=== PATIENT | female | born 2005 | race Caucasian/White ===

== ENCOUNTER 2024-01-13 08:00 | Inpatient (IN) | payer OTHER ==
[2024-01-13] MEDS: ELECTROLYTE-148 SOLN 500 ML IV ONE (09:30)
[2024-01-13 09:47] VITALS: BMI 29.2
[2024-01-13] MEDS ORDERED: ACETAMINOPHEN 325 MG TABLET (FP) PO PRN (10:09)
[2024-01-13] MEDS: ELECTROLYTE-148 SOLN 1,000 ML IV SCH (10:30)
[2024-01-13] MEDS ORDERED: FENTANYL CITRATE/PF 50 MCG/ML VIAL ONE (10:36)
[2024-01-13] MEDS ORDERED: morphine SULFATE/PF 1 MG/2 ML (2cc Syringe - QUVA) ONE (10:36)
[2024-01-13] MEDS: CITRIC ACID/SODIUM CITRATE 30 ML UNIT-DOSE CUP PO ONE (10:45)
[2024-01-13] MEDS ORDERED: ceFAZolin SODIUM 1 GM VIAL ONE (11:19)
[2024-01-13] MEDS ORDERED: ONDANSETRON 4 MG/2 ML VIAL ONE (11:20)
[2024-01-13] MEDS ORDERED: OXYTOCIN 20 UNITS in 0.9% NS 20 UNIT/1,000 ML INFUS.BAG IV ONE (12:11)
[2024-01-13] MEDS: OXYTOCIN 20 UNITS in 0.9% NS 20 UNIT/1,000 ML INFUS.BAG IV SCH (12:15)
[2024-01-13] MEDS: ONDANSETRON 4 MG/2 ML VIAL IVPUSH PRN (13:15)
[2024-01-13] MEDS: IBUPROFEN 800 MG/8 ML IJ IVPB PRN (16:48)
[2024-01-13] MEDS ORDERED: oxyCODONE HCL 5 MG TABLET PO PRN (22:09)
[2024-01-14 07:48] LABS: BASO % 0.3 % (0-2.0); EOS % 0.2 % (0-4.5); HEMATOCRIT 34.2 % (32.4-45.2); HEMOGLOBIN 11.1 GM/dL (10.7-15.3); LYMPH % 12.3 % (8-40); MCH 27.5 pg (25.7-33.7); MCHC 32.4 g/dl (32.0-36.0); MEAN CELL VOLUME 84.9 fl (80-96); MEAN PLT VOLUME 8.6 fl (7.5-11.1); MONO % 6.6 % (3.8-10.2); NEUT % 80.6 % (42.8-82.8); PLATELET COUNT 232 10^3/uL (134-434); RBC 4.03 M/mm3 (3.60-5.2); RDW 24.8 % (11.6-15.6); WHITE BLOOD COUNT 16.8 K/mm3 (4.0-10.0)
[2024-01-14 09:05] LABS: ANISOCYTOSIS 3+; MACROCYTOSIS 0
[2024-01-14] MEDS ORDERED: BISACODYL 10 MG SUPP.RECT RC PRN (10:09)
[2024-01-14] MEDS: IBUPROFEN 600 MG TABLET (FP) PO PRN (15:32)
[2024-01-14] MEDS: SIMETHICONE 80 MG TAB.CHEW (FP) PO PRN (15:33)
[2024-01-15 22:33] VITALS: TEMP 98.7
[2024-01-16 08:21] LABS: BASO % 0.7 % (0-2.0); EOS % 1.5 % (0-4.5); HEMATOCRIT 36.9 % (32.4-45.2); HEMOGLOBIN 12.1 GM/dL (10.7-15.3); MCH 28.2 pg (25.7-33.7); MCHC 32.8 g/dl (32.0-36.0); MEAN PLT VOLUME 8.5 fl (7.5-11.1); MONO % 6.8 % (3.8-10.2); PLATELET COUNT 298 10^3/uL (134-434); RBC 4.29 M/mm3 (3.60-5.2); RDW 24.5 % (11.6-15.6)
[2024-01-16 12:00] VITALS: BP 111/74; PULSE 79; RESP 17
== END 2024-01-16 13:25 | disposition home or self-care (01) | DRG 540 ==
LOC: JLDR 08:00 → J3W 14:20
PROVIDERS: ADMIT Student in an Organized Health Care Education/Training Program; ATTEND Student in an Organized Health Care Education/Training Program
PROC: 10D00Z1 Extraction of Products of Conception, Low, Open Approach (ICD-10-PCS; principal; 2024-01-13)
DX: O34.219 Maternal care for unspecified type scar from previous cesarean delivery (principal); Z3A.39 39 weeks gestation of pregnancy; Z37.0 Single live birth
CPT/HCPCS: 36415; 59409; 85025; 86850; 86900; 86901; 88307-TC; 94010